=== PATIENT | female | born 1960 | race Caucasian/White ===

== ENCOUNTER → 2016-06-23 | Outpatient (CLI) | payer OTHER ==
--- NOTE | 2016-06-23 14:48 | CT ---
EXAMINATION TYPE: CT pelvis w con DATE OF EXAM: 06/23/2016 2:20 PM COMPARISON: NONE HISTORY: Fluid in pelvis per order. CT DLP: 997.20 mGycm Automated exposure control for dose reduction was used. CONTRAST: Performed with oral and with IV Contrast, patient injected with 100 ml mL of Omnipaque 300. FINDINGS: Visualized liver is hypodense consistent with fatty infiltration. Gallbladder is contracted and thus limited in evaluation. Visualized distal pancreas and inferior spleen are unremarkable. Visualized po rtion of both kidneys are unremarkable. Visualized portion of bladder is within normal limits. Uterus is retroverted in shape but within normal limits in size. Both ovaries are present and felt no rmal in size, no concerning adnexal masses seen. No free fluid is seen in pelvis on current study. Oral contrast reaches sigmoid colon level. There is no suspicious small or large bowel dilatation. Te rminal ileum is felt within normal limits seen best on coronal image 18. Cecum is slightly wondering in the anterior right mid abdomen on axial image 23. Normal contrast-filled appendix is seen extendin g inferiorly and laterally best on coronal images 17 through 23. There is moderate calcified atherosclerotic change of aorta. Mild facet arthropathy lower lumbar spin e is seen. IMPRESSION: NO FREE FLUID IS SEEN IN PELVIS CURRENTLY. UNREMARKABLE STUDY.
== END | disposition home or self-care (01) ==
LOC: RADCTMAIN 13:16
PROVIDERS: ATTEND Internal Medicine
DX: N71.0 Acute inflammatory disease of uterus (principal)
CPT/HCPCS: 72193; Q9967

== ENCOUNTER 2016-07-04 07:33 | Day surgery (SDC) | payer OTHER ==
[2016-07-02 09:52] VITALS: BMI 34.0
[~2016-07-04 07:33] MED LIST: LACTATED RINGERS 1,000 ML IV SCH
[2016-07-04] MEDS ORDERED: LIDOCAINE 1% 20 ML VIAL (10MG/ML) FOR IV START INTRADERMA ONE (08:13)
[2016-07-04] MEDS ORDERED: PROPOFOL 10 MG/ML 20 ML VIAL IV ONE (08:29)
--- NOTE | 2016-07-04 08:47 | P.PCN ---
Date of Procedure: 07/04/16 Procedure(s) Performed: BRIEF HISTORY: Patient is a 56-year-old pleasant white female, scheduled for an elective colonoscopy as a part of screening for colorectal neoplasia. PROCEDURE PERFORMED: Colonoscopy. PREOPERATIVE DIAGNOSIS: Screening for Colon cancer. IV sedation per Anesthesia. PROCEDURE: After informed consent was obtained, the patient, was brought into the endoscopy unit. IV sedation was administered by Anesthesia under continuous monitoring. Digital rectal examination was normal. Initially the Olympus CF- 160 flexible video colonoscope was then inserted in the rectum, gradually advanced into the cecum without any difficulty. Careful examination was performed as the scope was gradually being withdrawn. Ileocecal valve and the appendiceal orifice were visualized and appeared normal. Prep was excellent. Mucosa of the cecum, ascending colon, transverse colon, descending colon, sigmoid colon, and rectum appeared normal. Retroflexion was performed in the rectum and no lesions were seen. The patient tolerated the procedure well. IMPRESSION: Normal-appearing colon from rectum to cecum with no evidence of colorectal neoplasia. RECOMMENDATIONS: Findings of this examination were discussed with the patient as well as a family. She was advised to have a repeat screening colonoscopy in 10 years.
[2016-07-04 08:52] VITALS: BP 175/77; PULSE 81; RESP 16
== END 2016-07-04 09:29 | disposition home or self-care (01) ==
LOC: ORWHC2ENDO 07:33
PROVIDERS: ATTEND Internal Medicine Gastroenterology
DX: Z12.11 Encounter for screening for malignant neoplasm of colon (principal); E07.9 Disorder of thyroid, unspecified; Z87.891 Personal history of nicotine dependence; F39 Unspecified mood [affective] disorder; Z79.899 Other long term (current) drug therapy; Z88.5 Allergy status to narcotic agent; Z88.8 Allergy status to other drugs, medicaments and biological substances
CPT/HCPCS: J2704; G0121; 45378

== ENCOUNTER → 2017-06-26 | Outpatient (CLI) | payer BC ==
--- NOTE | 2017-06-26 10:04 | XR ---
EXAMINATION TYPE: XR hand complete RT DATE OF EXAM: 06/26/2017 CLINICAL HISTORY: pain TECHNIQUE: Frontal, lateral and oblique images of the right hand are obtained. COMPARISON: None. FINDINGS: There is no acute fracture/dislocation evident. The joint spaces appear within normal limi ts. The overlying soft tissue appears unremarkable. IMPRESSION: There is no acute fracture or dislocation ICD 10 NO FRACTURE, INITIAL EVALUATION
== END | disposition home or self-care (01) ==
LOC: RADXRYALE 09:18
PROVIDERS: ATTEND Internal Medicine
DX: M79.641 Pain in right hand (principal)

== ENCOUNTER → 2018-04-09 | Outpatient (CLI) | payer OTHER ==
--- NOTE | 2018-04-09 09:33 | US ---
EXAMINATION TYPE: US transvaginal DATE OF EXAM: 04/09/2018 COMPARISON: NONE CLINICAL HISTORY: N95.0 Post menopausal bleeding. Patient had pap smear recently and it was extremely painful, which is not normal for her, she is also having some vaginal bleeding every few months. G4P 1A3 TECHNIQUE: TV. Patient was not prepped for transabdominal and with PMB TV approach would better def ine endometrial thickness. Date of LMP: 6 yrs ago EXAM MEASUREMENTS: Uterus: 5.4 x 3.7 x 3.0 cm Endometrial Stripe: 0.7 cm Right Ovary: not seen due to likely atrophy and bowel gas Left Ovary: not seen due to likely atrophy and bowel gas *limited in how much pressure I could use to obtain images due to patients discomfort level 1. Uterus: Retroverted wnl 2. Endometrium: slightly thickened 3. Right Ovary: not seen due to bowel gas and likely atrophy 4. Left Ovary: not seen due to bowel gas and likely atrophy 5. Bilateral Adnexa: wnl 6. Posterior cul-de-sac: mild free fluid IMPRESSION: 1. Endometrium was difficult to visualize however appears focally thickened near the fundus measuring up to 7 mm for this postmenopausal female. Direct visualization and sampling are recommended. 2. Small amount of free fluid within the posterior cul-de-sac. 3. Nonvisualization of the bilateral ovaries due to overlying bowel gas and likely atrophy.
== END ==
LOC: RADUSWWP 08:36
PROVIDERS: ATTEND Internal Medicine
DX: N85.8 Other specified noninflammatory disorders of uterus (principal); N95.0 Postmenopausal bleeding
CPT/HCPCS: 76830

== ENCOUNTER → 2018-06-10 | Outpatient (CLI) | payer OTHER ==
[2018-06-10 11:35] LABS: Basophils # (A) 0.1 k/uL (0-0.2); Basophils % (A) 1 %; Eosinophils # (A) 0.2 k/uL (0-0.7); Eosinophils % (A) 3 %; HCT 39.6 % (34.0-46.0); HGB 13.3 gm/dL (11.4-16.0); Lymphocytes # (A) 2.1 k/uL (1.0-4.8); Lymphocytes % (A) 29 %; MCH 30.4 pg (25.0-35.0); MCHC 33.7 g/dL (31.0-37.0); MCV 90.2 fL (80.0-100.0); Mean Platelet Volume 8.5; Monocytes # (A) 0.4 k/uL (0-1.0); Monocytes % (A) 5 %; Neutrophils # (A) 4.3 k/uL (1.3-7.7); Neutrophils % (A) 60 %; Platelet Count 249 k/uL (150-450); RBC 4.39 m/uL (3.80-5.40); RDW 12.8 % (11.5-15.5); WBC 7.2 k/uL (3.8-10.6)
== END | disposition home or self-care (01) ==
LOC: LABPAT 10:48
PROVIDERS: ATTEND Obstetrics & Gynecology
DX: Z01.818 Encounter for other preprocedural examination (principal); N95.0 Postmenopausal bleeding; Z01.812 Encounter for preprocedural laboratory examination
CPT/HCPCS: 85025; 93005

== ENCOUNTER 2018-06-14 07:42 | Day surgery (SDC) | payer OTHER ==
[2018-06-09 16:00] VITALS: BMI 34.9
--- NOTE | 2018-06-10 16:35 | HP ---
HISTORY AND PHYSICAL HISTORY OF PRESENT ILLNESS: The patient is a 57-year-old 3, para 1-0-2-1 patient who was referred from Dr. Marin for evaluation of postmenopausal bleeding and thickened endometrial stripe. She had a number of years without any bleeding making the diagnosis of menopause and then underwent colonoscopy about 2 years ago. After that time, she began to experience occasional vaginal spotting, after moving her bowels or with any Valsalva maneuver. Her bleeding then became more frequent in the last several months and she underwent pelvic ultrasound through her primary care doctor's office, which showed an endometrial stripe thickness of 7 mm at which time she was sent for further evaluation. She did have an endometrial biopsy approximately 6 years ago for similar concerns, which was benign. She does not tolerate a pelvic exam in the office. PAST MEDICAL HISTORY: Significant for remote history of JOHN 2. She additionally has had a goiter, Ryan's thyroiditis, hyperlipidemia, morbid obesity. PAST SURGICAL HISTORY: Significant for adenoids and tonsils removed in 1968. She additionally had a cold knife cone done in the past. She has had D and C for incomplete or missed on 2 separate occasions. Additionally had a subsequent history of LEEP as well as a voluntary termination of and some oral surgery. There is reportedly no anesthetic concerns. OBSTETRICAL/MANAGER PARK HISTORY: 3, para 1-0-2-1 with 1 term vaginal delivery preceded by a 1 elective interruptions of and 1 D and C for miscarriage. Gynecologic history is unremarkable with no history of any infections to include STDs. FAMILY HISTORY: Noncontributory. SOCIAL HISTORY: The patient is and is self-employed. She is a nonsmoker for many years. Reports occasional alcohol, but no other social concerns. CURRENT MEDICATIONS: Include only [place] Thyroid orally as well as oxybutynin orally both on a daily basis. ALLERGIES: CODEINE caused nausea and vomiting and she also has an ALLERGY TO STATINS, WHICH CAUSE SIGNIFICANT LEG MUSCLE PAIN. REVIEW OF SYSTEMS: Is confined to history of present illness. PHYSICAL EXAMINATION: Vital signs are stable. The patient is afebrile. In general, this is a well- developed, mildly obese white female in no acute distress. Her heart has regular rhythm and rate without murmur. Her lungs are clear to auscultation bilaterally in all carroll. Her abdomen is nondistended, has normoactive bowel sounds, soft, nontender, without any palpable masses. Her extremities without any cyanosis, clubbing, or edema and are nontender to palpation bilaterally. Pelvic examination demonstrates an inability to visualize the cervix secondary to patient discomfort. I was however able to see what appeared to be a likely polyp prolapsing through the cervix at the apex of the vagina. Bimanual demonstrates the uterus to be atrophic in size, mid plane, mobile, nontender, and essentially normal in shape. The adnexa are nonpalpable without any apparent masses bilaterally. ASSESSMENT AND PLAN: Postmenopausal bleeding: Given the patient's discomfort with the examination and inability to further evaluate in the office, we will proceed to the operating room. I do feel the most likely finding is to be an a prolapsing endometrial polyp. Nonetheless, I will proceed with diagnostic hysteroscopy with dilation and curettage and probable polypectomy. The risks and complications of the procedure were thoroughly discussed including the risks for bleeding, bleeding requiring transfusion, infection, and injury to local structures to specifically include uterine perforation. She has understood and agreed to proceed. Surgery on June 14, 2018. MMODL / IJN: [id number] /
[~2018-06-14 07:42] MED LIST changes: +DEXAMETHASONE SOD PHOSPHATE 10 MG/ML 1 ML VIAL IV ONE; +LIDOCAINE 1% 20 ML VIAL (10MG/ML) FOR IV START INTRADERMA PRN; +MIDAZOLAM 2 MG/2 ML VIAL IV PRN; +Pre Op ABX Message 1 EACH MISC MISCELLANE ONE; +fentaNYL (PF) 50 MCG/ML 2 ML AMP IV PRN
[2018-06-14] MEDS ORDERED: ONDANSETRON 4 MG/2 ML VIAL IVP ONE (08:31)
[2018-06-14] MEDS ORDERED: LIDOCAINE 1% INJ 10MG/ML (20 ML MDV) ONE (10:08)
[2018-06-14] MEDS ORDERED: fentaNYL (PF) 50 MCG/ML 2 ML AMP ONE (10:08)
[2018-06-14] MEDS ORDERED: PROPOFOL 10 MG/ML 20 ML VIAL IV ONE (10:08)
[2018-06-14] MEDS ORDERED: KETOROLAC 30 MG/ML 1 ML VIAL ONE (10:08)
[2018-06-14] MEDS ORDERED: MIDAZOLAM 2 MG/2 ML VIAL ONE (10:08)
[2018-06-14] MEDS ORDERED: METOCLOPRAMIDE 5 MG/ML 2 ML VIAL IVP PRN (10:10)
[2018-06-14] MEDS ORDERED: ONDANSETRON 4 MG/2 ML VIAL IVP PRN (10:10)
[2018-06-14] MEDS ORDERED: KETOROLAC 30 MG/ML 1 ML VIAL IVP PRN (10:10)
[2018-06-14] MEDS ORDERED: diphenhydrAMINE 50 MG/ML 1 ML VIAL IVP PRN (10:10)
[2018-06-14] MEDS ORDERED: IBUPROFEN 600 MG TAB PO PRN (10:10)
[2018-06-14] MEDS ORDERED: SIMETHICONE 80 MG CHEWABLE PO PRN (10:10)
[2018-06-14] MEDS ORDERED: LACTATED RINGERS 1,000 ML IV SCH (10:15)
[2018-06-14] MEDS ORDERED: SORBITOL 3% IRRIGATION 3,000 ML IRRIGATION ONE (10:29)
--- NOTE | 2018-06-14 10:40 | P.OP ---
Date of Procedure: 06/14/18 Preoperative Diagnosis: #1. Postmenopausal bleeding #2. Presumptive endometrial polyp Postoperative Diagnosis: Same Procedure(s) Performed: #1. Endometrial polypectomy #2. Diagnostic hysteroscopy #3. Dilation and curettage Anesthesia: other (Gen. by LMA) Surgeon: Jayant Dolan Estimated Blood Loss (ml): 3 IV fluids (ml): 400 Urine output (ml): 50 Pathology: other (Endometrial polyp with endometrial curettings) Condition: stable Disposition: PACU Operative Findings: Preoperatively, the uterus was atrophic in size, retroverted, mobile, and normal in shape. There was clearly a palpable soft fleshy mass protruding through the cervix on bimanual. Placement of speculum demonstrated what appeared to be a clear polyp which appeared to have an origin from the endometrium rather than the endocervix. Using the hysteroscope, the lining of the uterus appeared to be entirely atrophic though there was a small spot in the posterior fundus with a small strand of tissue appeared to be originating which was likely the origin of the in vitro polyp. This was felt to be removed with the polyp forceps. Curettage demonstrated the typical gritty texture of benign tissue and minimal to no tissue was returned with curettage. Description of Procedure: The patient was prepped and draped in usual fashion after general anesthesia was administered by the anesthesiologist. A weighted speculum was placed and there was clearly seen a polyp prolapsing through the cervix which appeared consistent with endometrial origin. The bladder was drained of approximately 50 mL of clear david urine. The anterior lip of the cervix was grasped with a single- tooth tenaculum and the polyp grasped with a ring forceps. The polyp was removed by using gentle traction and continuous twisting in a clockwise fashion until it came out in what appeared to be an intact fashion. Serial dilation was then carried out to admit the diagnostic hysteroscope which was placed into the endometrial cavity. The findings were as noted above with what appeared to be atrophy throughout the possible small fibroid on the anterior fundal wall less than 17 m in size. There was a small strand of tissue originating in the mid right upper fundus which was likely the base of the polyp. Once adequate hysteroscopy was carried out, it was set aside and a polyp forceps utilized to grasp the base and remove it to be sent with the pathology. Following excision of the base, thorough curettage was carried out using a sharp curette with the typical gritty texture encountered throughout. There was no evidence of any fibroids palpable during curettage. All instrumentation was then removed. There is no significant ongoing bleeding from either the tenaculum site nor the cervix. Estimated blood loss for the case was 3 mL or less. There were no complications. All sponge, instrument, and needle counts were correct. The patient tolerated the procedure well and proceeded to the recovery room in stable condition.
[2018-06-14 10:51] VITALS: TEMP 96.8
[2018-06-14 11:26] VITALS: BP 147/81; RESP 18
[2018-06-14 11:45] VITALS: PULSE 71
== END 2018-06-14 12:10 | disposition home or self-care (01) ==
LOC: OR 07:42
PROVIDERS: ATTEND Obstetrics & Gynecology
DX: N84.0 Polyp of corpus uteri (principal); Z87.410 Personal history of cervical dysplasia; E06.3 Autoimmune thyroiditis; E78.5 Hyperlipidemia, unspecified; F39 Unspecified mood [affective] disorder; E66.01 Morbid (severe) obesity due to excess calories; Z68.34 Body mass index [BMI] 34.0-34.9, adult; Z98.890 Other specified postprocedural states; Z79.1 Long term (current) use of non-steroidal anti-inflammatories (NSAID); Z79.890 Hormone replacement therapy; Z79.899 Other long term (current) drug therapy; Z88.5 Allergy status to narcotic agent; Z88.8 Allergy status to other drugs, medicaments and biological substances
CPT/HCPCS: 88305; 58558; J2250; J1100; J2405; J2001; J3010; J1885; J2704

== ENCOUNTER → 2019-01-05 | Outpatient (CLI) | payer OTHER ==
--- NOTE | 2019-01-05 10:08 | XR ---
EXAMINATION TYPE: XR thoracic spine 2V DATE OF EXAM: 01/05/2019 CLINICAL HISTORY: Chronic increasing upper thoracic back pain. TECHNIQUE: Frontal, lateral, and swimmer's view of thoracic spine are obtained. COMPARISON: None. FINDINGS: Thoracic spine show satisfactory alignment. There is a questioned compression deformity at approximately T7. Alternatively Schmorl's node is possible. Multilevel anterior osteophytes, interver tebral disc space narrowing and endplate sclerosis are seen. There is mild diffuse demineralization. Vertebral body heights and disc space heights are preserved. Visualized ribs are unremarkable. IMPRESSION: 1. Questionable mild compression deformity of approximately T7. This could be further evaluated with MRI. MRI would be better suited to assess for bone marrow edema and determine acuity. 2. Mild to moderate multilevel degenerative disc disease of the cervical spine.
--- NOTE | 2019-01-05 10:10 | XR ---
EXAMINATION TYPE: XR cervical spine limited DATE OF EXAM: 01/05/2019 TECHNIQUE: Frontal, lateral, and swimmer's views of the cervical spine are obtained. HISTORY: [id number],[id number] CERV,THOR SPINE COMPARISON: None FINDINGS: There is straightening of usual cervical lordosis. The cervical spine is visualized in its entirety from C1 thru the top of T1 level, it is satisfactory in alignment without evidence of acute fracture or dislocation. The pre-vertebral soft tissue appears within normal limits. Intervertebral disc space narrowing is seen at C2-C3 and C5-C6. Small anterior osteophytes are also noted throughou t the cervical spine. The C1-C2 articulation is within normal limits on the open mouth view. IMPRESSION: 1. No acute fracture or dislocation is seen in the cervical spine. 2. Straightening of usual cervical lordosis may relate to muscular sprain, spasm or patient positioni ng. 3. Mild to moderate degenerative disc disease of the cervical spine is most focal at C5-C6.
== END | disposition home or self-care (01) ==
LOC: RADXRYALE 09:19
PROVIDERS: ATTEND Internal Medicine
DX: M50.322 Other cervical disc degeneration at C5-C6 level (principal); M54.6 Pain in thoracic spine
CPT/HCPCS: 72040; 72070

== ENCOUNTER → 2021-06-04 | Outpatient (CLI) | payer BC ==
--- NOTE | 2021-06-04 09:02 | CT ---
EXAMINATION TYPE: CT brain wo/w con DATE OF EXAM: 06/04/2021 COMPARISON: None available HISTORY: WRIGHT CT DLP: 2244 mGycm Automated exposure control for dose reduction was used. TECHNIQUE: CT scan of the brain is performed without and with IV contrast administration. FINDINGS: Marked dilatation of the lateral ventricles mainly anteriorly as well as the third ventricle with nor mal sized fourth ventricle. This is associated with slightly crowded cortical sulci of the cerebral h emispheres including at the vertex. Minimal periventricular white matter hypodensity which could repr esent mild chronic ischemic changes versus mild transependymal CSF migration. The corpus callosum is apparently stretched and splayed over the dilated ventricles. The degree of ballesteros pratentorial ventricular dilatation is disproportionate to the volume loss changes with the latter is minimal. No dilatation of the temporal horns of the lateral ventricles. No acute intracranial hemorrhage. No gross acute cortical infarct. No midline shift or herniation. Un remarkable cali-white matter differentiation, basal cisterns, sella and CP angles. No gross space-occ upying lesion, vasogenic edema or mass effect. No area of abnormal enhancement, meningeal thickening or hyperenhancement. Patent major intracranial vessels. Unremarkable orbits. Clear visualized paranasal sinuses and mastoid air cells. Degenerative changes of the TMJs, more on the left side. No aggressive bone lesion. IMPRESSION: Supratentorial ventricular dilatation as detailed above. The underlying etiology could be related to aqueductal stenosis however a form of communicating hydrocephalus cannot be excluded. Recommend clini jose correlation and neurology consultation. Further MRI assessment can be considered. Other findings as described above.
== END | disposition home or self-care (01) ==
LOC: RADCTMAIN 07:49
PROVIDERS: ATTEND Internal Medicine
DX: G93.89 Other specified disorders of brain (principal)
CPT/HCPCS: 70470; Q9967

== ENCOUNTER → 2021-07-03 | Outpatient (CLI) | payer BC ==
--- NOTE | 2021-07-03 12:15 | XR ---
EXAMINATION TYPE: XR ribs RT DATE OF EXAM: 07/03/2021 CLINICAL HISTORY: Pain, Fall Four views of the ribs fail demonstrate evidence for displaced rib fracture or secondary sign of rib fracture. Visualized lungs are clear. No evidence for pneumothorax. IMPRESSION: 1. No displaced rib fractures seen. ICD 10 NO FRACTURE, INITIAL EVALUATION
--- NOTE | 2021-07-03 12:15 | XR ---
EXAMINATION TYPE: XR chest 2V DATE OF EXAM: 07/03/2021 COMPARISON: NONE HISTORY: Shortness of breath TECHNIQUE: Frontal and lateral views of the chest are obtained. FINDINGS: Scattered senescent parenchymal changes noted. Hyperinflation compatible with COPD. No evidence for infiltrate. No evidence for atelectasis. Heart size is stable. Mediastinal structures are stable and grossly unremarkable. No evidence for hilar prominence. Degenerative changes dorsal spine. IMPRESSION: 1. No evidence for acute pulmonary disease.
== END | disposition home or self-care (01) ==
LOC: RADXRYALE 11:54
PROVIDERS: ATTEND Internal Medicine
DX: R07.81 Pleurodynia (principal); R06.02 Shortness of breath; W19.XXXA Unspecified fall, initial encounter
CPT/HCPCS: 71046

== ENCOUNTER → 2023-03-23 | Outpatient (CLI) | payer BC ==
--- NOTE | 2023-03-25 21:45 | P.PCN ---
Date of Procedure: 03/23/23 Operative Findings: Home sleep study testing Date of services 03/23/2023 Pertinent history This is a 62-year-old female patient was referred to me for sleep apnea evaluation. The patient has loud snoring and witnessed apneas and she cares for score of 12. She has a body mass index of 36.7. She also has significant crowding of the posterior pharynx with a Mallampati class IV. Her sleep is fragmented. She has increased anxiety. No other significant comorbidities other than hypothyroidism and hyperlipidemia and degenerative arthritis. No cardiovascular complications. Pertinent physical findings The patient has a weight of 194 pounds, height is 5 feet and 1 inch and the body mass index is 36.7 Technical description The [employer] apnea link system was used to complete this home sleep study. This is a type III home sleep study. Total recording duration was 8033 minutes. The study started at 7:02 PM and ended at 3:35 AM in the morning. This was an adequate study as the patient had a total of 7 hours and 51 minutes of flow monitoring and 8 hours and 16 minutes of oxygen saturation monitoring Results The respiratory analysis showed a total of 75 obstructive apneas and 218 obstructive hypopneas. Resulting AHI was 37.3 without any positional variation. Oxygenation analysis The patient had a total of 471 oxygen saturation with a pulse ox of 5 more than 4%. The baseline pulse ox while awake was 95%, average pulse ox during sleep was 93%, minimum pulse ox was 65% and the patient spent only 35 minutes of the sleep time below pulse ox of 89% Cardiac summary The average heart rate was 76 with a minimum heart rate of 57 and a maximum heart rate of 107 Assessment Severe symptomatic [place] with an AHI of 37.3 Mild nocturnal oxygen desaturation with a minimum pulse ox of 65% Chronic hypersomnia with an [place] score of 12 Obesity with a body mass index of 36.7 Hyperlipidemia Hypothyroidism Degenerative arthritis Plan This patient will benefit from CPAP therapy. Obviously she has severe symptomatic obstructive sleep apnea and she will be recommended to undergo a CPAP titration to be followed by CPAP therapy. She will continue her efforts in weight loss. Maintain regular sleep schedule and promote good sleep hygiene measures. Will continue to follow.
== END ==
LOC: 3 N SLEEP 10:30
PROVIDERS: ATTEND Internal Medicine Critical Care Medicine
DX: G47.33 Obstructive sleep apnea (adult) (pediatric) (principal); E03.9 Hypothyroidism, unspecified; E78.5 Hyperlipidemia, unspecified; E66.9 Obesity, unspecified; G47.10 Hypersomnia, unspecified; F41.9 Anxiety disorder, unspecified; M19.90 Unspecified osteoarthritis, unspecified site; G47.36 Sleep related hypoventilation in conditions classified elsewhere; Z68.36 Body mass index [BMI] 36.0-36.9, adult; Z88.5 Allergy status to narcotic agent; Z88.8 Allergy status to other drugs, medicaments and biological substances; Z79.890 Hormone replacement therapy; Z87.891 Personal history of nicotine dependence

== ENCOUNTER → 2023-03-25 | Outpatient (CLI) | payer BC ==
--- NOTE | 2023-03-25 12:01 | XR ---
EXAMINATION TYPE: XR ankle complete RT DATE OF EXAM: 03/25/2023 COMPARISON: NONE HISTORY: Pain TECHNIQUE: Frontal, lateral and oblique images of the right ankle are obtained. COMPARISON: None. FINDINGS: There is no acute fracture/dislocation evident. The joint spaces appear within normal bal its. The overlying soft tissue appears unremarkable. IMPRESSION: There is no acute fracture or dislocation seen.
--- NOTE | 2023-03-25 12:06 | XR ---
EXAMINATION TYPE: XR foot complete RT DATE OF EXAM: 03/25/2023 CLINICAL HISTORY: pain TECHNIQUE: Frontal, lateral and oblique images of the right foot are obtained. COMPARISON: None. FINDINGS: There is no acute fracture/dislocation evident. The joint spaces appear within normal bal its. The overlying soft tissue appears unremarkable. IMPRESSION: There is no acute fracture or dislocation. ICD 10 NO FRACTURE, INITIAL EVALUATION
== END | disposition home or self-care (01) ==
LOC: RADXRYALE 11:41
PROVIDERS: ATTEND Internal Medicine
DX: M25.571 Pain in right ankle and joints of right foot (principal)

== ENCOUNTER 2023-05-18 19:41 | Outpatient (CLI) | payer BC ==
--- NOTE | 2023-05-19 22:28 | P.PCN ---
Date of Procedure: 05/18/23 Operative Findings: CPAP titration summary Date of services 05/18/2023 Pertinent history This is a 63-year-old female patient has been diagnosed having severe symptomatic obstructive sleep apnea with an AHI of 37.3. The patient is coming in to undergo CPAP titration study. The patient has a baseline [place] score of 12. The patient is obese with a BMI of 36.7. The patient has hyperlipidemia hypothyroidism and degenerative arthritis. Technical description The patient was studied using a standard complex polysomnography protocol that included recording of the 2 EKG, Central, occipital and frontal EEG, right and left outer canthus EOG, submental EMG, right and left anterior tibialis EMG, respiratory airflow by thermocouple and or pressure/flow transducer, respiratory efforts by abdominal and thoracic PVDF belts, oxygen saturation by cable oximetry. Position by observation synchronized the PSG. Stepwise CPAP titration was done to eliminate obstructive respiratory events equipment used: [employer]. Sleep architecture The total recording duration was 446.0 minutes. The total sleep time was 348.5 minutes. The latency to sleep onset was 22 minutes and the patient had a sleep efficiency of 78.1%. Latency to REM sleep was 65.5 minutes. The sleep architecture was characterized by 5.3% stage I, 66.1% stage II, 3.3% stage III and XX 6.5% REM sleep. The total arousal index was 9.0 Respiratory summary/CPAP titration summary The patient was started on CPAP therapy initially at the pressure of 5 cm of water pressure was gradually increased by increments of 1 cm to reach a maximum CPAP pressure of 10 cm of water. I carefully reviewed CPAP titration taken, the patient's sleep stage and body position. There was improvement in the patient's obstructive respiratory events with adequate improvement in oxygenation and resolution of the obstructive respiratory events with pressures of 10 cm of water. This was successful study. The patient is showing various body positions, predominantly sleeping on her side and the patient also was studied in various sleep stages and this included REM and non-REM sleep. In summary, this was a successful titration Sleep continuity summary There was a total of 52 arousals throughout the sleep study with an index of 9.0. Respiratory arousal index was 0.3 Periodic limb movements The patient had a total of 210 periodic limb movement activity with an index of 36.2. There were only 4 periodic limb movement activity with arousals with an index of 0.7 Cardiac summary Average heart rate was 65 with a minimum heart rate of 61 and a maximum heart rate of 71 Assessment symptomatic obstructive sleep apnea, severe at baseline with an AHI of 37.3. The patient underwent a successful CPAP titration. Chronic hypersomnia with an [place] score of 12 Obesity with a BMI of 36.7 Hyperlipidemia Hypothyroidism Degenerative arthritis Plan Initiate CPAP therapy pressure of 10 cm of water with C-Flex of 3. Will offer the patient an AirFit N20 small size nasal mask. Encourage weight loss. Optimize sleep hygiene measures. See me back in the office in 30 to 90 days to assess clinical response and compliancy and further adjustments will be done accordingly. This was successful titration.
== END 2023-05-19 05:45 | disposition home or self-care (01) ==
LOC: 3 N SLEEP 19:41
PROVIDERS: ATTEND Internal Medicine Critical Care Medicine
DX: G47.33 Obstructive sleep apnea (adult) (pediatric) (principal); G47.10 Hypersomnia, unspecified; E66.9 Obesity, unspecified; E78.5 Hyperlipidemia, unspecified; E03.9 Hypothyroidism, unspecified; M19.90 Unspecified osteoarthritis, unspecified site; Z99.89 Dependence on other enabling machines and devices; Z68.36 Body mass index [BMI] 36.0-36.9, adult; Z88.5 Allergy status to narcotic agent; Z88.1 Allergy status to other antibiotic agents; Z87.891 Personal history of nicotine dependence
CPT/HCPCS: 95811

== ENCOUNTER → 2024-01-05 | Outpatient (CLI) | payer BC ==
[2024-01-05 16:37] LABS: ALT 18 U/L (8-44); AST 17 U/L (13-35); Albumin 4.5 g/dL (3.8-4.9); Albumin/Globulin Ratio 1.61 Ratio (1.60-3.17); Alkaline Phosphatase 108 U/L (41-126); BUN/Creat Ratio 19.43 Ratio (12.00-20.00); Blood Urea Nitrogen 13.6 mg/dL (9.0-27.0); C Reactive Protein <0.30 mg/dL (0.00-0.80); Calcium 9.7 mg/dL (8.7-10.3); Carbon Dioxide 25.1 mmol/L (21.6-31.8); Chloride 103 mmol/L (96-109); Creatine Kinase 38 U/L (26-186); Globulin 2.8 g/dL (1.6-3.3); Glucose 94 mg/dL (70-110); Potassium 4.2 mmol/L (3.5-5.5); Rheumatoid Factor, Qnt <15 IU/mL (0-15); Sodium 140 mmol/L (135-145); Total Bilirubin 0.2 mg/dL (0.3-1.2); Total Protein 7.3 g/dL (6.2-8.2); Uric Acid 5.9 mg/dL (2.9-7.7)
[2024-01-05 16:57] LABS: Basophils # (A) 0.09 X 10*3/uL (0.00-0.10); Eosinophils # (A) 0.22 X 10*3/uL (0.04-0.35); Eosinophils % (A) 2.5 %; HGB 13.4 g/dL (12.0-15.0); Lymphocytes % (A) 25.3 %; MCH 29.5 pg (27.0-32.0); MCHC 33.5 g/dL (32.0-37.0); MCV 88.1 FL (80.0-97.0); Mean Platelet Volume 11.7 FL (9.5-12.2); Monocytes # (A) 0.55 X 10*3/uL (0.20-1.00); Monocytes % (A) 6.3 %; NRBC Per 100 WBC 0 X 10*3/uL (0.00-0.01); Neutrophils % (A) 64.4 %; Platelet Count 259 X 10*3/uL (140-440); RBC 4.54 X 10*6/uL (4.10-5.20); RDW 12.7 % (11.5-14.5)
[2024-01-05 18:32] LABS: Erythrocyte Sedimentation Rate 31 mm/Hr (0-30)
[2024-01-05 20:54] LABS: Cyclic Citrull Pep IgG Unit <1.5 U/mL (<=3.9); Cyclic Citrullinated Pep IgG Negative
[2024-01-06 11:22] LABS: Angiotensin-1 Converting Enz. 21 U/L (8-52)
[2024-01-06 13:39] LABS: HLA B27 NEGATIVE
== END | disposition home or self-care (01) ==
LOC: LABWHC1 10:36
PROVIDERS: ATTEND Internal Medicine Rheumatology
DX: M25.571 Pain in right ankle and joints of right foot (principal); M76.71 Peroneal tendinitis, right leg
CPT/HCPCS: 36415; 80053; 82164; 82306; 82550; 83520; 84550; 85025; 85652; 86038; 86140; 86200; 86431; 86812

== ENCOUNTER → 2024-02-05 | Outpatient (CLI) | payer BC ==
--- NOTE | 2024-02-05 23:57 | BD ---
EXAMINATION TYPE: Axial Bone Density DATE OF EXAM: 02/05/2024 CLINICAL HISTORY: 63 years old Female. ICD-10 CODE: N95.8 OTHER SPECIFIED MENOPAUSE , Additional His tory: Height: 61.5 Weight: 193.8 FRAX RISK QUESTIONS: Alcohol (3 or more units per day): no Family History (Parent hip fracture): no Glucocorticoids (More than 3mos): no (Ex: prednisone, prednisolone, methylprednisolone, dexamethasone, and hydrocortisone). History of Fracture in Adulthood: no Secondary Osteoporosis: 1. Type 1 Diabetes: no 2. Hyperthyroidism: no 3. Menopause before 45: no 4. Malnutrition: no 5. Chronic liver disease: no Rheumatoid Arthritis: no Current Tobacco Use: no RISK FACTORS HISTORY OF: Hip Fracture (Right/Left): no Spine Fracture: no History of Wrist Fracture: no Surgery to Spine/Hip(right/left)/Wrist (right/left): no MEDICATIONS: Thyroid Medications: Armor Thyroid How Long: since age 12 Osteoporosis Medications: no EXAM MEASUREMENTS: Bone mineral densitometry was performed using the [employer] System. Bone mineral density as measured about the Lumbar spine is: ----- L1-L4(G/cm2): 1.095 T Score Values are as follows: ----- L1: -0.5 ----- L2: -1.1 ----- L3: -0.6 ----- L4: -0.8 ----- L1-L4: -0.7 Z Score Values are as follows: ----- L1: 0.4 ----- L2: -0.3 ----- L3: 0.3 ----- L4: 0.0 ----- L1-L4: 0.1 Bone mineral density has: decreased -2.0 % since study of: 04/20/2012 Bone mineral density about the R hip (g/cm2): 0.3950 Bone mineral density about the L hip (g/cm2): 1.067 T Score values are as follows: -----R Neck: -1.6 -----L Neck: -1.0 -----R Total: -0.5 -----L Total: 0.5 Z Score values are as follows: -----R Neck: -0.6 -----L Neck: 0.0 -----R Total: 0.2 -----L Total: 1.2 Bone mineral density has: INCREASED 1.1 % since study of: 04/20/2012 FRAX%s: The graph provided illustrates a 8.7 % chance for a major osteoporotic fx and a 1.0% chance f or the hips probability for fx in 10 years time. IMPRESSION: Osteopenia (T Score between -2.5 and -1). There is slightly increased risk of fracture and the patient may be considered for treatment. Re-Screen 2-5 years. NOTE: T-SCORE=SD OF THE YOUNG ADULT MEAN. [facility], , 02/05/2024 11:54 PM
--- NOTE | 2024-02-07 03:20 | MM ---
Reason for Exam: Screening (asymptomatic). Last mammogram was performed 11 year(s) and 10 month(s) ago. Patient History: Menarche at age 8. First Full-Term at age 27. Postmenopausal. Risk Values: Monse 5 year model risk: 2.0%. NCI Lifetime model risk: 7.6%. Prior Study Comparison: 11/30/2006 Bilateral Screening Mammogram, [facility]. 04/20/2012 Bilateral Screening Mammogram, [facility]. Tissue Density: The breasts are heterogeneously dense, which may obscure small masses. Findings: Analyzed By CAD. The pattern is symmetrical. Chronic nodularity appears to be present. No individual nodules more suspicious than another. No suspicious groups of microcalcifications, spiculated or lobular masses, architectural distortion or other secondary signs of malignancy are mammographically apparent. Overall Assessment: Benign, BI-RAD 2 Management: Screening Mammogram of both breasts in 1 year. A negative mammogram report should not preclude additional follow up of suspicious palpable abnormalities. Patient should continue monthly self breast exam. A clinical breast exam by your physician is recommended on an annual basis and results should be correlated with mammographic findings. Note on Monse scores and lifetime risk: 1. A Monse score greater than 3% is considered moderate risk. If this is the case, consider specialist referral to assess eligibility for a risk reducing agent. 2. If overall lifetime risk for the development of breast cancer is 20% or higher, the patient may qualify for future screening with alternating mammogram and breast MRI. [facility], , 02/07/2024 3:17 AM. Electronically signed and approved by: Tanner Garland D.O. Radiologis
== END | disposition home or self-care (01) ==
LOC: RADMAMWWP 10:32
PROVIDERS: ATTEND Internal Medicine
DX: Z12.31 Encounter for screening mammogram for malignant neoplasm of breast (principal); N95.8 Other specified menopausal and perimenopausal disorders; Z78.0 Asymptomatic menopausal state; R92.333 Mammographic heterogeneous density, bilateral breasts; M85.89 Other specified disorders of bone density and structure, multiple sites
CPT/HCPCS: 77067; 77080